=== PATIENT | male | born 1995 | race Caucasian/White ===

== ENCOUNTER 2019-06-01 13:00 | Day surgery (SDC) ==
[2019-06-01 13:58] LABS: BASO# 0.03 X1000 (0.0-0.2); BASO% 0.2 % (0.0-0.8); EOS# 0.06 X1000 (0.0-0.7); EOS% 0.5 % (0.0-10.0); MCH 27.7 PG (27-31); RDW 14.5 % (11.5-14.5)
[2019-06-01 14:28] LABS: AGAP 13; ALB/GLOB RATIO 1.4; ALBUMIN 4.6 g/dL (3.5-5.0); ALKALINE PHOSPHATASE 112 U/L (32-122); BUN 10 mg/dL (8-22); CALCIUM 9.5 mg/dL (8.8-10.2); CHLORIDE 102 mmol/L (98-107); COSMO 280; ESTIMATED GFR > 60; GLUCOSE 129 mg/dL (70-104); GOT 15 U/L (10-34); GPT 38 U/L (10-44); LIPASE 9 U/L (13-60); POTASSIUM 4.1 mmol/L (3.5-5.1); SODIUM 140 mmol/L (136-145); TCO2 25 mmol/L (25-35); TOTAL BILIRUBIN 0.54 mg/dL (0.20-1.00); TOTAL PROTEIN 7.8 g/dL (6.3-8.3)
[2019-06-01 15:41] LABS: HEMATOCRIT 50.2 % (42.0-52.0); IMM GRAN# 0.14 X1000 (0.0-0.04); IMM GRAN% 1.1 % (0.0-0.5); LYMPH# 2.13 X1000 (1.2-3.4); LYMPH% 16.5 % (20.5-51.1); MCHC 31.9 g/dL (33-37); MONO# 0.75 X1000 (0.11-0.59); MONO% 5.8 % (1.7-9.3); MPV 11.9 FL (7.4-10.4); NEUT% 75.9 % (42.2-75.2); PLT 211 X1000 (130-400); RBC 5.77 XMIL (4.7-6.1); WBC 12.91 X1000 (4.8-10.8)
--- NOTE | 2019-06-01 16:07 | PROVIDER DOCUMENTATION ---
HPI-Abdominal Pain/GI Problem - General Chief Complaint: Abdominal Pain Stated Complaint: ABD PAIN,ABNORMAL LABS Time Seen by Provider: 06/01/19 13:37 Source: patient Allergies/Adverse Reactions: Patient Allergies Allergy/AdvReac Type Severity Reaction Status Date / Time No Known Allergies Allergy Verified 05/25/13 12:41 Home Medications: Home Medication List Medication Instructions Recorded Confirmed Last Taken Type Ibuprofen [Motrin] 800 mg PO Q8H PRN PRN #30 tablet 05/25/13 Unknown Rx Montelukast [Singulair] 10 mg PO DAILY PRN PRN 05/25/13 05/25/13 05/22/13 08:00 History Tramadol [Ultram] 50 mg PO Q6H PRN PRN #15 tablet 05/25/13 Unknown Rx - History of Present Illness-ABD Nature of Presenting Problems: 23yom present to ER with c/o RLQ abd pain onset 2 days ago. Pt reports being seen at Dr [facility] earlier today and referred here due to WBC 13. Reports tactile fever and chills. Abdominal Pain Onset Location: reports: RLQ, suprapubic Pain Radiation: reports: no radiation Quality of Pain: reports: sharp, stabbing Onset/Duration: reports: 2 days ago Timing: reports: still present, getting worse Associated Symptoms: reports: fever/chills. denies: constipation, diaphoresis, diarrhea, genitourinary problems, nausea, shortness of breath, vomiting Review of Systems - Adult - REVIEW OF SYSTEMS - ADULT Constitutional: reports: chills, fever (tactile) Eyes: reports: no symptoms reported Ears, Nose, Mouth & Throat: reports: no symptoms reported Cardiovascular: reports: no symptoms reported. denies: chest pain Respiratory: reports: no symptoms reported. denies: shortness of breath Gastrointestinal: reports: see HPI, abdominal pain. denies: diarrhea, nausea, vomiting Genitourinary: reports: no symptoms reported. denies: dysuria, frequency Musculoskeletal: reports: no symptoms reported Integumentary: reports: no symptoms reported Neurological: reports: no symptoms reported Psychiatric: reports: no symptoms reported Endocrine: reports: no symptoms reported Hematologic/Lymphatic: reports: no symptoms reported Allergic/Immunologic: reports: no symptoms reported All Other Systems: Reviewed and Negative Past History - Adult - PAST MEDICAL HISTORY-ADULT Review of Records: reports: Old Records Reviewed, Nursing Assessment Review, Medications Reviewed, Social history reviewed & non-contributory. Major Childhood Illnesses: reports: denies history Cardiovascular: reports: denies history Respiratory: reports: denies history Gastrointestinal: reports: denies history Obstetrical/Gynecological: reports: denies history Genitourinary: reports: denies history Musculoskeletal: reports: denies history Neurological: reports: denies history Endocrine/Immune: reports: denies history Other Conditions: reports: denies history Physical Exam-General - PHYSICAL EXAM-ADULT Initial Vital Signs Reviewed: Yes - CONSTITUTIONAL General Appearance: alert, no apparent distress - HEAD, EARS, NOSE, MOUTH & THROAT HENMT: moist mucous membranes - NECK Neck: full range of motion, supple, normal inspection - RESPIRATORY Respiratory: lungs clear, normal breath sounds, no respiratory distress, no accessory muscle use - CARDIOVASCULAR Cardiovascular: tachycardia - GASTROINTESTINAL (ABDOMEN) Abdominal Exam: normal bowel sounds, soft, no organomegaly, no pulsatile mass, rebound, tenderness (RLQ). negative: distended - MUSCULOSKELETAL Back Exam: normal inspection, no CVA tenderness Extremity: normal range of motion, normal gait, normal inspection - SKIN Integumentary: normal color, warm/dry - PSYCHIATRIC Psych/Mental Status: normal mood/affect, oriented x 3 Progress - PLAN OF CARE/RESULTS Progress/Plan/Lab Results: Vital Signs - 8 hr 06/01/19 13:29 Temperature 98.8 F Pulse Rate 112 H Respiratory Rate 18 Blood Pressure 152/88 O2 Sat by Pulse Oximetry 95 Laboratory Results - last 24 hr 06/01/19 06/01/19 13:43 13:44 WBC 12.91 H RBC 5.77 Hgb 16.0 Hct 50.2 MCV 87.0 MCH 27.7 MCHC 31.9 L RDW Std Deviation 14.5 Plt Count 211 MPV 11.9 H Immature Gran % (Auto) 1.1 H Neut % (Auto) 75.9 H Lymph % (Auto) 16.5 L Hendry % (Auto) 5.8 Eos % (Auto) 0.5 Baso % (Auto) 0.2 Immature Gran # (Auto) 0.14 H Neut # (Auto) 9.80 H Lymph # (Auto) 2.13 Hendry # (Auto) 0.75 H Eos # (Auto) 0.06 Baso # (Auto) 0.03 Sodium 140 Potassium 4.1 Chloride 102 Carbon Dioxide 25 Anion Gap 13 BUN 10 Creatinine 1.0 Estimated GFR/1.73 m2 > 60 BUN/Creatinine Ratio 10 Glucose 129 H Calculated Osmolality 280 Calcium 9.5 Total Bilirubin 0.54 AST 15 ALT 38 Alkaline Phosphatase 112 Total Protein 7.8 Albumin 4.6 Globulin 3.2 Albumin/Globulin Ratio 1.4 Lipase 9 L Orders Category Date Time Status CT ABD/PELVIS W/IV CONT ONLY [CT] Stat Exams 06/01/19 13:40 Ordered CBC WITH DIFF [HEME] Stat Lab 06/01/19 13:44 Completed COMPREHENSIVE METABOLIC PANEL [CHEM] Stat Lab 06/01/19 13:43 Completed LIPASE [CHEM] Stat Lab 06/01/19 13:43 Completed UA [URINALYSIS W/POSS RFLX CULT] [URINALYSIS] Stat Lab 06/01/19 13:37 Uncollected Result Diagrams: 06/01/19 13:44 06/01/19 13:43 - CT/MRI 1 CT Study: Abdomen, Pelvis Impression: See EMR Report (FINDINGS: There is fatty infiltration of the liver. No calcified gallstones or adjacent inflammation. Normal spleen, pancreas, adrenal glands, and kidneys. No hydronephrosis. Normal aorta. Maximum diameter of the appendix is 6 mm. Questionable minimal induration in the adjacent fat. No free air. No abscess. No bowel obstruction. No ascites. Urinary bladder is not distended. Normal prostate. Small pelvic and iliac nodes. IMPRESSION: Fatty infiltration of the liver. No definite appendicitis. Short-term follow-up may be beneficial. This exam was performed using automated exposure control, adjustment of mA or kV according to patient size, and/or use of iterative re construction technique. Electronically signed by David Ramos 06/01/2019 5:26 PM 06/01/[id number] Interpreting Physician: David Ramos MD Dictated Date/Time: 06/01/19 172) - CONSULTS/PCP/HOSPITALIST Notification #1 *Consult/PCP/Hospitalist*: Dr Gold Time Discussed: 17:40 (instructed to admit to him, no pain meds, no abx and he will see patient.) Consult Disposition: Admit Departure - Departure Date of Disposition Decision: 06/01/19 Time of Disposition Decision: 17:41 DIAGNOSIS: RLQ abdominal pain Appendicitis Qualifiers: Appendicitis type: acute appendicitis Acute appendicitis type: unspecified acute appendicitis type Qualified Code(s): K35.80 - Unspecified acute appendicitis Disposition: ADMITTED INPATIENT 09 Certified Medical Emergency: Emergent Condition: Stable Referrals and Follow-Ups: Maria E Caabllero MD [Primary Care Provider] - - Critical Care Note This patient required my direct & personal management of CC.: No Attestation - Physician/ BRITTA Attestation Patient care was provided by Advanced Practice Provider:: Yes Advanced Practice Provider:: Malathi Roa Advanced Practice Provider documentation review:: The Mid-level provider documentation, treatment plan and medical decision making was reviewed by the physician who agrees with all treatment and medical decision making by the MLP. The physician spent face to face time with patient:: Yes Advanced Practice Provider documentation review:: Supervising physician onsite and consulted in the evaluation and care of this patient. The physician did have a face to face encounter with the patient.
[2019-06-01] MEDS ORDERED: SODIUM CHLORIDE 0.9% INJ ONE (16:10)
[2019-06-01] MEDS ORDERED: PHENERGAN IV ONE (16:10)
[2019-06-01 16:40] LABS: URINE SOURCE CLEAN CATCH
[2019-06-01 16:45] LABS: BILIRUBIN URINE NEGATIVE (NEGATIVE); BLOOD URINE NEGATIVE (NEGATIVE); COLOR YELLOW; GLUCOSE URINE NEGATIVE (NEGATIVE); KETONE URINE NEGATIVE (NEGATIVE); LEUKOCYTES URINE NEGATIVE (NEGATIVE); NITRITE URINE NEGATIVE (NEGATIVE); PROTEIN URINE 50 mg/dL (NEGATIVE); SP GRAVITY URINE 1.034; TURBIDITY URINE CLEAR (CLEAR); UROBILINOGEN URINE NORMAL (NORMAL)
[2019-06-01 16:51] LABS: UR EPITHELIAL CELLS <10 /HPF (<10); URINE BACTERIA NEGATIVE /HPF; URINE RBC <10 /HPF (<10); URINE WBC <10 /HPF (<10)
[2019-06-01 17:08] LABS: URINE CASTS NONE SEEN; URINE YEAST NONE SEEN
[2019-06-01 17:09] LABS: URINE CRYSTALS NONE SEEN
[2019-06-01] MEDS ORDERED: NS 1,000 ML IV ONE (17:27)
--- NOTE | 2019-06-01 17:29 | Diag Imaging Result Doc PS360 ---
EXAM: CT ABD/PELVIS W/IV CONT ONLY HISTORY: abd pain, elevated wbc TECHNIQUE: CT abdomen and pelvis with intravenous contrast COMPARISON: None. FINDINGS: There is fatty infiltration of the liver. No calcified gallstones or adjacent inflammation. Normal spleen, pancreas, adrenal glands, and kidneys. No hydronephrosis. Normal aorta. Maximum diameter of the appendix is 6 mm. Questionable minimal induration in the adjacent fat. No free air. No abscess. No bowel obstruction. No ascites. Urinary bladder is not distended. Normal prostate. Small pelvic and iliac nodes. IMPRESSION: Fatty infiltration of the liver. No definite appendicitis. Short-term follow-up may be beneficial. This exam was performed using automated exposure control, adjustment of mA or kV according to patient size, and/or use of iterative reconstruction technique. Electronically signed by David Ramos 06/01/2019 5:26 PM
[2019-06-01] MEDS ORDERED: MEFOXIN 2 GM/NS 2 GM/50 ML IVPB IV ONE (18:41)
[2019-06-01] MEDS ORDERED: LR 1,000 ML ONE (19:03)
[2019-06-01] MEDS ORDERED: SENSORCAINE 0.25%/EPI 1:200,000 ONE (19:03)
[2019-06-01] MEDS ORDERED: DIPRIVAN 1% ONE ×2 (19:19→19:20)
[2019-06-01] MEDS ORDERED: ROBINUL ONE ×2 (19:22→19:44)
[2019-06-01] MEDS ORDERED: STERILE WATER INJ. ONE (19:22)
[2019-06-01] MEDS ORDERED: XYLOCAINE-MPF 2% ONE (19:22)
[2019-06-01] MEDS ORDERED: NORCURON ONE (19:22)
[2019-06-01] MEDS ORDERED: QUELICIN (DOSE) ONE (19:22)
[2019-06-01] MEDS ORDERED: FENTANYL ONE (19:24)
[2019-06-01] MEDS ORDERED: VERSED ONE (19:28)
[2019-06-01] MEDS ORDERED: REGLAN ONE (19:28)
[2019-06-01] MEDS ORDERED: PEPCID ONE (19:32)
[2019-06-01] MEDS ORDERED: NEOSTIGMINE ONE (19:44)
[2019-06-01] MEDS ORDERED: ZOFRAN ONE (19:44)
[2019-06-01] MEDS ORDERED: DECADRON ONE (19:44)
[2019-06-01] MEDS ORDERED: NORCO-5 PO PRN (20:46)
[2019-06-01] MEDS ORDERED: ZOFRAN IV PRN (20:47)
[2019-06-01] MEDS ORDERED: OFIRMEV 1000 MG/ISOTONIC SOLN 1,000 MG/100 ML BOTTLE ONE (20:59)
[2019-06-01] MEDS ORDERED: TORADOL ONE (20:59)
[2019-06-01] MEDS ORDERED: NORCO-5 ONE (20:59)
[2019-06-01] MEDS ORDERED: KETAMINE ONE (21:05)
--- NOTE | 2019-06-02 06:13 | HISTORY AND PHYSICAL ---
ADMITTING COMPLAINT: Right lower quadrant pain. HISTORY OF PRESENT ILLNESS: A 23-year-old male presenting with a several day history of right lower quadrant pain that started periumbilical, and now is more right lower quadrant. It has been associated with some nausea. He has never had pain like this before. He has had issues with kidney stones, but it felt different. He was seen by his primary care physician, and was noted to have elevated white blood cell count. He was sent to the emergency department, where he had a CT scan which did not show obvious appendicitis, but he had a leukocytosis, tachycardia, and tenderness in the right lower quadrant. He is still complaining of tenderness. PAST MEDICAL HISTORY: History of asthma. PAST SURGICAL HISTORY: None. SOCIAL HISTORY: Former smoker, but uses dip. Reports occasional alcohol. FAMILY HISTORY: Reviewed with patient and noncontributory. ALLERGIES: None. HOME MEDICATIONS: 1. Motrin. 2. Singulair. 3. Ultram. REVIEW OF SYSTEMS: A full 14 systems reviewed and negative except as specified in HPI. PHYSICAL EXAMINATION: VITAL SIGNS: Patient is currently afebrile. He does have a low-grade tachycardia in the low 100s. Blood pressure is slightly elevated. GENERAL: No acute distress, but appears uncomfortable. male looks stated age. HEENT: Normocephalic, atraumatic. Pupils equal, round, and reactive to light. Mucous membranes moist. Oropharynx benign. CARDIOVASCULAR: Regular rate and rhythm. LUNGS: Grossly clear. ABDOMEN: Soft. Tender to palpation in the right lower quadrant. Positive rebound. EXTREMITIES: Positive psoas sign, but moves all extremities. VASCULAR: All extremities perfused. NEUROLOGIC: Grossly intact. SKIN: No signs of jaundice. LABORATORY: White blood count elevated at 12 with a left shift. CT scan independently reviewed and radiology report reviewed. ASSESSMENT AND PLAN: A 23-year-old gentleman with right lower quadrant pain. Right lower quadrant pain. At this time, patient is essentially almost meeting sepsis criteria with tachycardia and leukocytosis and possible source for making it a normal sepsis. We will plan on surgical intervention today. Discussed with him the risks, benefits, and alternatives of the procedure. Risks including but not limited to bleeding, infection, risk of anesthesia, risk of anastomotic breakdown, injury to other organs discussed. We will plan on doing this tonight. cc: Jose Gold MD
[2019-06-02 07:37] VITALS: BP 159/82
--- NOTE | 2019-06-02 08:04 | OPERATIVE NOTE ---
PROCEDURE DATE: 06/01/2019 PREOPERATIVE DIAGNOSIS: Possible appendicitis. POSTOPERATIVE DIAGNOSIS: Appendicitis. PROCEDURE: Laparoscopic appendectomy. SURGEON: Jose Gold MD. POULTRY SERVICE TECHNICIAN: None. ANESTHESIA: General tracheal. INTRAOPERATIVE FINDINGS: Early appendicitis at the tip. COMPLICATIONS: None at time of dictation. EBL: 10 mL. SPECIMEN: Appendix. BRIEF HISTORY: A 23-year-old gentleman presenting with 2-day history of right lower quadrant pain. He had a CT scan that did not show appendicitis, but he was tachycardic and leukocytosis, felt that he probably had appendicitis. The risks, benefits and alternatives for the procedure were discussed. All questions answered. DESCRIPTION OF PROCEDURE: After informed consent was obtained, the patient brought to the operative theatre, transferred to the operating table in the supine position. General endotracheal anesthesia was then performed without complication. A formal time-out was then performed confirming patient, date, procedure. All in agreement. At that time, attention was given to the abdomen. An infraumbilical incision was made through which using Optiview technique we inserted a 12 mm trocar, connected it to insufflation. Pneumoperitoneum was achieved. Under direct visualization, we placed 2 more trocars one 5 mm right upper quadrant, one 5 mm left lower quadrant. Using these, the appendix was identified. Using LigaSure we took down the mesoappendix. We then elevated the appendix, fired a stapler across the base of the appendix at the junction with the cecum with good results. We then placed the appendix in the EndoCatch and brought it out through the infraumbilical incision. We reexamined the staple line and it is in good position. There was no drainage of succus or stool. There was no bleeding. We closed the infraumbilical incision with 0 Vicryl on a Wesley-Tong device, removed all trocars, disconnected insufflation. Pneumoperitoneum was released. All skin incisions closed with 4-0 Monocryl. The patient tolerated the procedure well. He will be observed overnight. cc: Jose Gold MD
--- NOTE | 2019-06-02 10:37 | GENERAL SURGERY PROGRESS NOTE ---
DATE: 06/02/2019 Patient doing well after his appendectomy. Feels better. He has been hemodynamically stable. His pain is a whole lot less than it was prior to the surgery. Will plan on discharging him today. cc: Jose Gold MD
== END 2019-06-02 08:52 | disposition home or self-care (01) ==
LOC: 4N 13:00 → ED 13:00 → OPS 13:01
PROVIDERS: ATTEND Surgery